=== PATIENT | female | born 1960 | race Caucasian/White ===

== ENCOUNTER 2024-08-20 15:47 | Emergency (ER) | payer OTHER, MEDICARE, MEDICAID ==
[~2024-08-20] VITALS: Ht 160 cm; Wt 72.6 kg
[~2024-08-20 15:47] MED LIST: AMOXICILLIN500 MG PO; CLARITIN10 MG PO; COMPAZINE10 MG PO; DAYPRO600 M1 PO; DAYPRO600 MG PO; FLAGYL500 MG PO; Fioricet 325 MG1 TAB PO; LISINOPRIL/HCTZ1 TA2 PO; NEURONTIN300 MG PO; NEXIUM40 MG PO; NORCO 5-325 TA1 EACH PO; PERCOCET 325 MG1 TA7 PO; PREDNICOT20 MG PO; ROBAXIN750 MG PO; TENORMIN50 MG PO; TESSALON PERLE100 M1 PO; VIBRAMYCIN100 MG PO; VICODIN ES 7501 TA1 PO
[2024-08-20 16:18] LABS: BASO % 0.5 % (0.0-1.0); EOS # 0.2 10*3/uL (0.0-0.4); EOS % 2.4 % (1.0-4.0); HEMATOCRIT 30.5 % (37.0-47.0); MEAN CELL VOLUME 72.1 fl (81.0-99.0); MEAN CORPUSCULAR HGB 20.3 pg (27.0-31.0); MEAN CORPUSCULAR HGB CONC 28.2 g/dl (33.0-37.0); MEAN PLATELET VOLUME 10.4 fl (9.6-12.3); MONO # 0.5 10*3/uL (0.1-1.0); NEUT # 5.2 10*3/uL (2.3-7.9); NEUT % 69.1 % (47.0-73.0); PLATELET COUNT AUTOMATED 296 10*3/uL (130-400); RED BLOOD COUNT 4.23 10*6/uL (4.10-5.10); RED CELL DISTRI WIDTH 17.7 % (0-14.5); WHITE BLOOD COUNT 7.5 10*3/uL (4.8-10.8)
[2024-08-20 16:33] LABS: ACT PARTIAL THROMBO TIME 24.6 SECONDS (20.0-32.1)
[2024-08-20 16:44] LABS: ALKALINE PHOSPHATASE 119 U/L (46-116); BUN 13 mg/dl (9-23); CHLORIDE 107 mmol/L (98-107); POTASSIUM 3.6 mmol/L (3.4-5.1); SGPT/ALT 14 U/L (5-49); TOTAL PROTEIN 7.1 gm/dL (6.0-8.0)
[2024-08-20] MEDS ORDERED: Orphenadrine C100 MG PO (18:33)
[2024-08-20] MEDS ORDERED: PERCOCET 5-3251 EACH PO (18:38)
[2024-08-20] MEDS ORDERED: Acetaminophen/Oxycodone 5 MG/325 MG TABLET PO ONE (18:40)
== END 2024-08-20 19:02 ==
LOC: ED 15:47
PROVIDERS: Emergency Medicine
DX: S22.070A Wedge compression fracture of T9-T10 vertebra, initial encounter for closed fracture (principal); I10 Essential (primary) hypertension; K21.9 Gastro-esophageal reflux disease without esophagitis; J45.909 Unspecified asthma, uncomplicated; Z79.899 Other long term (current) drug therapy; Z88.5 Allergy status to narcotic agent; Z88.8 Allergy status to other drugs, medicaments and biological substances; V49.9XXA Car occupant (driver) (passenger) injured in unspecified traffic accident, initial encounter; Y93.89 Activity, other specified; Y92.488 Other paved roadways as the place of occurrence of the external cause; Y99.8 Other external cause status